=== PATIENT | female | born 1960 | race Caucasian/White ===

== ENCOUNTER → 2020-04-02 10:28 | Outpatient (CLI) | payer MEDICAID, SELFPAY | PROVIDERS: PCP Family Medicine; Visit Provider Otolaryngology | DX: Z20.828 Contact with and (suspected) exposure to other viral communicable diseases (principal) | CPT/HCPCS: 87635; 94799; U0003 ==

== ENCOUNTER → 2020-04-06 | Outpatient (CLI) | payer MEDICAID, SELFPAY ==
--- NOTE | 2020-04-06 12:23 | TISS_PTH ---
PATIENT: EMILIE GORDON LOC: [facility] U#:[id number] AGE/SX: 60/F ROOM: RE04/06/[address]: Dr. Armani Duran MD : 1960 BED: DIS: 04/06/2020 SPEC #: [id number] RECD: 04/06/20 15:06 STATUS: MAJOR ADRIANA #: [id number] CASH: 04/06/20 12:[address]: Armani Duran DEPT: SURGICAL PATHOLOGY RECD BY: Vinnie Buitrago ENTERED: 04/07/20 08:05 SP TYPE: Tissue Bx EVELYN DR: Dr. Skinny Waite III, MD [facility] Tissues: Right ear, NOS Procedures: Special Stain Group II Surgery Specimen Level IV Imprint (control) HEADER OPERATION: Excision neoplasm right ear PRE-OP DIAGNOSIS: Neoplasm right ear; possible lymph node TISSUE SUBMITTED: Neoplasm right ear MICROSCOPIC DIAGNOSIS Neoplasm right ear, excision: Epithelial inclusion cyst, favor pilomatricoma with focal calcifications. Negative for malignancy. YOLI:jacqueline 04/08/20 COMMENT The specimen is evaluated at the time of touch imprints by Dr. Braga. Immediate Evaluation = Anucleated squamous cells. Lymph node tissue is not identified. Case has been reviewed in consultation with Dr. Reardon who concurs with the above diagnosis. IDC:AM MICROSCOPIC DESCRIPTION Slides are reviewed. GROSS DESCRIPTION Received in normal saline is one container labeled with the patient's name and designated excision neoplasm right ear. The specimen consists of a piece of skin with underlying cyst. The skin piece measures 1 x 0.3 cm and the underlying cyst measures 1 x 1 x 0.5 cm. The specimen is bisected and reveals a cyst filled with grayish, turbid fluid. Four touch imprints are prepared, two stained with DiffQuik and two stained with H & E stain. The entire specimen is submitted in one cassette. / YOLI:jacqueline 04/07/20 TC:1 CPT: 90388, 31872
== END | disposition home or self-care (01) ==
LOC: LABSPEC 15:24
PROVIDERS: PCP Family Medicine; Referring Provider Otolaryngology; Visit Provider Otolaryngology
DX: D48.5 Neoplasm of uncertain behavior of skin (principal)
CPT/HCPCS: 88305; 88313

== ENCOUNTER → 2021-04-16 15:06 | Outpatient (CLI) | payer MEDICAID, SELFPAY ==
--- NOTE | 2021-04-16 | LES_PTH ---
PATIENT: EMILIE GORDON LOC: [facility] U#:[id number] AGE/SX: 65/F ROOM: RE04/16/[address]: Dr. Armani Duran MD : 1960 BED: DIS: SPEC #: [id number] RECD: 04/16/21 14:41 STATUS: MAJOR ADRIANA #: [id number] CASH: 04/16/21 00:[address]: Armani Duran DEPT: SURGICAL PATHOLOGY RECD BY: Maynor Marques ENTERED: 04/19/21 08:13 SP TYPE: Lesion OTHR DR: Dr. Skinny Waite III, MD Tissues: Skin of face, NOS Procedures: Surgery Specimen Level IV HEADER OPERATION: Right medial canthus skin neoplasm PRE-OP DIAGNOSIS: Right medial canthus skin neoplasm TISSUE SUBMITTED: Right medial canthus skin neoplasm MICROSCOPIC DIAGNOSIS Right medial canthus skin neoplasm, biopsy: Inflamed squamous papilloma. Negative for malignancy. See comment. SJ:jacqueline 04/20/2021 COMMENT Clinical correlation and appropriate follow up are necessary. MICROSCOPIC DESCRIPTION Slides are reviewed. GROSS DESCRIPTION Received in fixative is one container labeled with the patient's name and designated skin neoplasm. The specimen consists of a piece of garcia-white skin measuring 0.2 x 0.1 x 0.1. The entire specimen is submitted in one cassette. / YOLI:jacqueline 04/19/21 TC:1 CPT: 94206
== END ==
PROVIDERS: PCP Family Medicine; Visit Provider Otolaryngology
DX: D49.2 Neoplasm of unspecified behavior of bone, soft tissue, and skin (principal)
CPT/HCPCS: 88305